=== PATIENT | female | born 1965 | race Caucasian/White ===

== ENCOUNTER 2016-10-14 05:45 | Day surgery (SDC) | payer OTHER ==
[2016-10-13 10:46] LABS: BASOPHILS % (AUTO) 0.4 % (0.0-2.0); EOSINOPHILS # (AUTO) 0.1 K/uL (0.0-0.4); EOSINOPHILS % (AUTO) 1.2 % (0.0-4.0); HEMATOCRIT 42.7 % (36-48); LYMPHOCYTES # (AUTO) 2.2 K/uL (1.0-5.5); LYMPHOCYTES % (AUTO) 19.4 % (20.5-51.5); MEAN CORPUSCULAR HEMOGLOBIN 31 pg (27-31); MEAN CORPUSCULAR HGB CONC 33 % (32-36); MEAN CORPUSCULAR VOLUME 95 fL (79.0-98.0); MONOCYTES # (AUTO) 0.9 K/uL (0.0-1.0); MONOCYTES % (AUTO) 8.1 % (1.7-9.3); NEUTROPHILS # (AUTO) 8.3 K/uL (1.8-7.7); NEUTROPHILS % (AUTO) 70.9 % (40.0-70.0); PLATELET COUNT (AUTO) 235 K/uL (130-430); RED CELL DISTRIBUTION WIDTH 12.7 % (9.0-15.0); WHITE BLOOD COUNT (AUTO) 11.5 K/uL (4.8-10.8)
[2016-10-13 10:53] LABS: BILIRUBIN,URINE NEGATIVE (NEGATIVE); BLOOD, URINE NEGATIVE (NEGATIVE); CLARITY/URINE CLEAR (CLEAR); COLOR,URINE YELLOW (YELLOW); GLUCOSE,URINE NEGATIVE (NEGATIVE); HCG,QUAL RESULT NEGATIVE (NEGATIVE); KETONES,URINE NEGATIVE (NEGATIVE); LEUKOCYTE ESTERASE ,URINE NEGATIVE (NEGATIVE); NITRITE, URINE NEGATIVE (NEGATIVE); PROTEIN URINE NEGATIVE (NEGATIVE); UROBILINOGEN,URINE 0.2 (0.2-1.0)
[2016-10-13 10:58] LABS: ALBUMIN 3.9 g/dL (3.4-4.8); CALCIUM 9.2 mg/dL (8.4-11.0); CREATININE 0.76 mg/dL (0.55-1.30); POTASSIUM 4.3 mmol/L (3.5-5.1); TOTAL BILIRUBIN 0.5 mg/dL (0.0-1.0); TOTAL PROTEIN, SERUM 7.3 g/dL (6.4-8.3)
[~2016-10-14] VITALS: Ht 157.5 cm; Wt 67.6 kg
[2016-10-14] MEDS ORDERED: SEVOFLURANE 15 MIN GAS INH ONE (07:30)
[2016-10-14] MEDS ORDERED: PROPOFOL 200MG/ 20ML VIAL (DIPRIVAN) IV ONE (07:30)
[2016-10-14] MEDS ORDERED: NEOSTIGMINE METHYLSULFATE 1 MG/ML, 10 ML VIAL IVP ONE (07:30)
[2016-10-14] MEDS ORDERED: KETOROLAC TROMETHAMINE 30 MG VIAL IVP ONE (07:30)
[2016-10-14] MEDS ORDERED: GLYCOPYRROLATE 0.2 MG/ML VIAL IJ ONE (07:30)
[2016-10-14] MEDS ORDERED: NS IRRIG SOLN 1000 ML IR ONE (07:30)
[2016-10-14] MEDS ORDERED: ROCURONIUM BROMIDE 10 MG/ML (ZEMURON) IV ONE (07:30)
[2016-10-14] MEDS ORDERED: fentaNYL CITRATE/PF 100 MCG/2 ML AMP IVP ONE (07:30)
[2016-10-14] MEDS ORDERED: MIDAZOLAM HCL 5 MG/5 ML VIAL IVP ONE (07:30)
[2016-10-14] MEDS ORDERED: LR 1,000 ML IV.SOLN IV ONE (07:30)
[2016-10-14] MEDS ORDERED: LR 1,000 ML IV SCH (08:07)
[2016-10-14] MEDS ORDERED: MEPERIDINE HCL/PF 25 MG/ML DISP.SYRIN IVP PRN (08:15)
[2016-10-14] MEDS ORDERED: MEPERIDINE HCL/PF 50 MG/ML AMP IVP PRN ×2 (08:15)
[2016-10-14] MEDS ORDERED: METOCLOPRAMIDE HCL 10 MG/2 ML VIAL IVP PRN (08:15)
[2016-10-14] MEDS ORDERED: IBUPROFEN 600 MG TABLET PO PRN (08:30)
[2016-10-14] MEDS ORDERED: ONDANSETRON HCL 4 MG/2 ML VIAL IVP PRN (08:30)
[2016-10-14] MEDS ORDERED: OXYCODONE/ACETAMINOPHEN 5-325 TABLET PO PRN ×2 (08:30)
[2016-10-14] MEDS ORDERED: PROMETHAZINE HCL 25 MG/ML AMP IM PRN ×2 (08:30)
[2016-10-14] MEDS ORDERED: MEPERIDINE HCL/PF 50 MG/ML AMP ONE (08:57)
[2016-10-14 10:02] VITALS: BP_SYST 103
== END 2016-10-14 10:25 | disposition home or self-care (01) ==
LOC: SMU 05:45 → SDS 05:45
PROVIDERS: ATTEND Obstetrics & Gynecology
DX: D25.1 Intramural leiomyoma of uterus (principal); J30.9 Allergic rhinitis, unspecified; F41.9 Anxiety disorder, unspecified; I10 Essential (primary) hypertension; G44.009 Cluster headache syndrome, unspecified, not intractable; E78.5 Hyperlipidemia, unspecified; D35.2 Benign neoplasm of pituitary gland; Z80.0 Family history of malignant neoplasm of digestive organs; Z82.49 Family history of ischemic heart disease and other diseases of the circulatory system; Z98.890 Other specified postprocedural states; Z90.49 Acquired absence of other specified parts of digestive tract; R00.1 Bradycardia, unspecified
CPT/HCPCS: 36415; 58563; 80053; 81003; 84703; 85025; 86886; 86900; 86901; 88305; J1885; J2175; J2250; J2704; J2710; J3010; J3490; J7120

== ENCOUNTER 2017-11-22 04:20 | Emergency (ER) | payer OTHER ==
[~2017-11-22] VITALS: Ht 157.5 cm; Wt 68.0 kg
[2017-11-22 04:20] VITALS: BP_SYST 136
[2017-11-22 05:30] VITALS: BP_SYST 130
== END 2017-11-22 05:30 | disposition home or self-care (01) ==
LOC: SED 04:20
DX: D25.9 Leiomyoma of uterus, unspecified (principal); R33.9 Retention of urine, unspecified
CPT/HCPCS: 99284